=== PATIENT | female | born 1965 | race Caucasian/White ===

== ENCOUNTER 2024-05-30 00:25 | Outpatient (CLI) | payer BC, SELFPAY ==
--- NOTE | 2024-05-30 | DI.MRI_ITS ---
Exam(s) MR BRAIN WO EXAM: MR BRAIN WO CLINICAL HISTORY: AMNESIA R41.3 FALL 11/11/23, CONCUSSION SYMPTOMS TECHNIQUE: Multiplanar multisequence MRI of the brain was performed. COMPARISON: No exams were available for comparison FINDINGS: VENTRICLES AND EXTRA AXIAL SPACES: Normal in size and morphology for the patient's age. MIDLINE SHIFT: None. CEREBRAL PARENCHYMA: No focus of restricted diffusion to suggest acute infarct. No space-occupying le ross identified. Mild atrophy consistent with the patient's age. Moderate scattered foci of high sig nal in the white matter consistent with sequela of chronic microvascular disease. No periventricular lesions. BRAINSTEM/CEREBELLUM: Normal. VISUALIZED PARANASAL SINUSES: Clear. MASTOIDS:Clear. Vasculature: Normal flow void. PITUITARY GLAND: Unremarkable. ORBITS: Unremarkable. IMPRESSION: Moderate scattered foci of high signal in the white matter most likely secondary to chronic microvasc ular changes. DATA REPOSITORY:
== END 2024-05-30 00:45 ==
LOC: DI 00:25
PROVIDERS: PCP Registered Nurse; Visit Provider Registered Nurse
DX: I25.85 Chronic coronary microvascular dysfunction (principal)
CPT/HCPCS: 70551